=== PATIENT | female | born 1925 | race African-American/Black ===

== ENCOUNTER 2017-03-07 09:46 | Emergency (ER) | payer MEDICARE ==
[2017-03-07 11:03] LABS: #Eosinphils 0.1 thou/uL (0.0-0.7); #Lymphocytes 1.4 thou/uL (1.20-3.40); #Monocytes 0.5 thou/uL (0.11-0.59); #Neutrophils 3.4 thou/uL (1.40-6.50); %Basophils 0.3 % (0.0-1.0); %Lymphocytes 26.1 % (21.0-51.0); %Monocytes 9.8 % (0.0-10.0); Anisocytosis SLIGHT = 6-15 cells (100X) (0-5/hpf); Hematocrit 37.7 % (36.0-47.0); Macrocytosis SLIGHT = 6-15 cells (100X) (0-5/hpf); Mean Platelet Volume 11.5 fL (7.4-10.4); Red Blood Cell (RBC) Count 3.49 mill/uL (4.20-5.40); White Blood Cell (WBC) Count 5.4 thou/uL (4.8-10.8)
[2017-03-07 11:06] LABS: ALT (SGPT) 10 U/L (8-55); AST (SGOT) 16 U/L (5-34); Alkaline Phosphatase 116 U/L (40-150); Anion Gap 19 mmol/L (10-20); BUN (Urea Nitrogen) 31 mg/dL (9.8-20.1); Bilirubin, Total 0.6 mg/dL (0.2-1.2); Calc. Creatinine Clearance 0 mL/min (70-130); Calcium 8.8 mg/dL (7.8-10.44); Carbon Dioxide 22 mmol/L (23-31); Chloride 99 mmol/L (98-107); Estimated GFR-MDRD 9; Globulin 3.5 g/dL (2.4-3.5); Protein, Total 7.1 g/dL (6.0-8.3)
[2017-03-07] MEDS ORDERED: Acetaminophen 325 MG TAB ONE (12:14)
--- NOTE | 2017-03-07 12:21 | CT ---
CT OF THE BRAIN WITHOUT CONTRAST: COMPARISON: 12/04/14. HISTORY: Fall last night with head trauma. Bone pain. The patient has diabetes and gout. TECHNIQUE: Multiple contiguous axial images were obtained in a CT of the brain without contrast. FINDINGS: There are scattered hypodensities in the subcortical and periventricular white matter, likely second basil to small-vessel ischemic disease. No large confluent infarction is seen. There is no evidence of hydrocephalus, intracranial hemorrhage, or extraaxial fluid collection. The calvarium and overlying soft tissues are unremarkable. The visualized paranasal sinuses and mas toid air cells are well aerated. IMPRESSION: No evidence of acute intracranial abnormality. POS: [facility]
--- NOTE | 2017-03-07 12:29 | RAD ---
SINGLE VIEW OF THE CHEST: COMPARISON: 11/16/16. HISTORY: CHF, hypercholesterolemia, and diabetes. Fall last night with trauma to the chest and head. FINDINGS: Single view of the chest shows a normal sized cardiomediastinal silhouette. There is no evidence of consolidation, mass, or pleural effusion. Degenerative changes are seen in the spine. IMPRESSION: No evidence of acute cardiopulmonary disease. POS: [facility]
--- NOTE | 2017-03-07 12:30 | RAD ---
SINGLE VIEW OF THE PELVIS: COMPARISON: 10/28/14. HISTORY: Hypercholesterolemia. Fall last night with left posterior rib pain and pelvic pain. FINDINGS: A single view of the pelvis shows no evidence of acute fracture or dislocation. Mild degenerative c hange is seen in both hips. IMPRESSION: Mild degenerative changes in the hips without acute osseous abnormality. POS: [facility]
--- NOTE | 2017-03-07 12:30 | RAD ---
LEFT RIB SERIES: COMPARISON: None. HISTORY: Left rib pain. FINDINGS: Three views left ribs show no evidence of displaced rib fracture. No underlying pleural thickening or pneumothorax are seen. A stent is seen in the left axillary region. IMPRESSION: No significant left rib abnormality. POS: [facility]
== END 2017-03-07 12:29 | disposition home or self-care (01) ==
LOC: ERS 09:46
DX: R51 Headache (principal); R07.81 Pleurodynia; R10.2 Pelvic and perineal pain; N18.6 End stage renal disease; I50.9 Heart failure, unspecified; E78.5 Hyperlipidemia, unspecified; E11.9 Type 2 diabetes mellitus without complications; W18.30XA Fall on same level, unspecified, initial encounter
CPT/HCPCS: 36415; 70450; 71010; 72170; 80053; 85025; 93005

== ENCOUNTER 2017-05-17 11:46 | Observation (INO) | payer MEDICARE ==
--- NOTE | 2017-05-17 12:14 | RAD ---
SINGLE VIEW OF THE CHEST: COMPARISON: 11/16/16. HISTORY: Chest pain that began last night. FINDINGS: Single view of the chest shows a normal sized cardiomediastinal silhouette. There is no evidence of c onsolidation, mass, or pleural effusion. The bones are unremarkable. There is a stent in the left up per extremity. IMPRESSION: No evidence of acute cardiopulmonary disease. POS: [facility]
[2017-05-17] MEDS ORDERED: Mag-Al 1200 mg/1200 mg/30 ML UDCUP ONE (12:52)
[2017-05-17] MEDS ORDERED: Lidocaine Viscous Sol 2% 15 ml UD Cup ONE (12:52)
[2017-05-17 12:56] LABS: INR-International Normal Ratio 1.1; PTT 33.6 SEC (22.9-36.1); Prothrombin Time 14.8 SEC (12.0-14.7)
[2017-05-17 13:11] LABS: ALT (SGPT) 14 U/L (8-55); AST (SGOT) 16 U/L (5-34); Albumin 3.3 g/dL (3.4-4.8); Alkaline Phosphatase 121 U/L (40-150); Anion Gap 16 mmol/L (10-20); BUN (Urea Nitrogen) 41 mg/dL (9.8-20.1); Bilirubin, Total 0.4 mg/dL (0.2-1.2); CK (CPK) 33 U/L (29-168); Calc. Creatinine Clearance 0 mL/min (70-130); Calcium 8.6 mg/dL (7.8-10.44); Carbon Dioxide 23 mmol/L (23-31); Chloride 101 mmol/L (98-107); Estimated GFR-MDRD 7; Glucose 183 mg/dL (83-110); Lipase 124 U/L (8-78); Potassium 5.2 mmol/L (3.5-5.1); Protein, Total 6.3 g/dL (6.0-8.3); Sodium 135 mmol/L (136-145)
[2017-05-17 13:14] LABS: CKMB 0.3 ng/mL (0-6.6)
[2017-05-17 13:15] LABS: Hemoglobin 10.5 g/dL (12.0-16.0); Mean Corpuscular HGB CONC 31.2 g/dL (32.0-36.0); Mean Platelet Volume 9.8 fL (7.4-10.4); Platelet Count 143 thou/uL (130-400); RBC Distribution Width 13.5 % (11.5-14.5); Red Blood Cell (RBC) Count 3.19 mill/uL (4.20-5.40); White Blood Cell (WBC) Count 7.4 thou/uL (4.8-10.8)
[2017-05-17 13:17] LABS: #Eosinphils 0.1 thou/uL (0.0-0.7); #Monocytes 0.7 thou/uL (0.11-0.59); #Neutrophils 3.6 thou/uL (1.40-6.50); %Basophils 0.5 % (0.0-1.0); %Eosinophils 1.1 % (0.0-10.0); %Lymphocytes 39.9 % (21.0-51.0); %Monocytes 9.9 % (0.0-10.0); %Neutrophils 48.6 % (42.0-75.0); Anisocytosis SLIGHT = 6-15 cells (100X) (0-5/hpf); Hypochromia SLIGHT = 6-15 cells (100X) (0-5/hpf); MDiff Complete? YES; PLT Morphology Comment Appears Adequate
[2017-05-17] MEDS ORDERED: Nitroglycerin 0.4 MG TAB (25 Tab Bottle) ONE (13:39)
[2017-05-17] MEDS ORDERED: Nitroglycerin 0.4 MG TAB (25 Tab Bottle) PO PRN (14:41)
[2017-05-17] MEDS ORDERED: Acetaminophen 325 MG TAB PO PRN (14:41)
[2017-05-17] MEDS ORDERED: Acetaminophen 650 MG Suppository PR PRN (14:41)
[2017-05-17] MEDS ORDERED: Lidocaine 2% Viscous Solution 10 ML, Aluminum & Magnesium Hydroxide 30 ML SSW PRN (15:03)
[2017-05-17] MEDS ORDERED: Lidocaine 2% Viscous Solution 10 ML, Aluminum & Magnesium Hydroxide 30 ML SSW SCH (15:15)
--- NOTE | 2017-05-17 15:45 | RAD ---
TWO VIEWS ABDOMEN: Comparison: 06-18-12 History: Abdominal pain. FINDINGS: Supine and decubitus views of the abdomen shows a nonspecific, nonobstructed bowel gas pattern. Air i s seen at the level of the rectum. No free air is seen on decubitus view. No air fluid levels are see n. No suspicious calcifications are present. Mild to moderate degenerative changes are seen in the saurav mbar spine. IMPRESSION: Nonobstructed bowel gas pattern. POS: [facility]
--- NOTE | 2017-05-17 15:45 | HP ---
PRIMARY CARE PHYSICIAN: Dr. Christin Haq. CHIEF COMPLAINT: Chest pain. HISTORY OF PRESENT ILLNESS: Ms. Mohan is a pleasant 89-year-old lady who was seen at [facility] on 05/17/2017. She reports that she has had chest pain since last night. She describes it as on and off, 10/10 at i ts worst, over the lower retrosternal area as well as epigastric area, nonradiating, sharp, accompani ed by nausea and diaphoresis, but not by shortness of breath or lightheadedness. She reports a chron ic cough that is nonproductive. REVIEW OF SYSTEMS: The following complete review of systems was negative, unless otherwise mentioned in the HPI or below: Constitutional: Weight loss or gain, ability to conduct usual activities. Skin: Rash, itching. Eyes: Double vision, pain. ENT/Mouth: Nose bleeding, neck stiffness, pain, tenderness. Cardiovascular: Palpitations, dyspnea on exertion, orthopnea. Respiratory: Shortness of breath, wheezing, cough, hemoptysis, fever or night sweats. Gastrointestinal: Poor appetite, abdominal pain, heartburn, nausea, vomiting, constipation, or diarr hea. Genitourinary: Urgency, frequency, dysuria, nocturia. Musculoskeletal: Pain, swelling. Neurologic/Psychiatric: Anxiety, depression. Allergy/Immunologic: Skin rash, bleeding tendency. PAST MEDICAL HISTORY: Significant for end-stage renal disease, on hemodialysis Thursday, Thursday, , anemia of kidney disease, cardiac arrhythmia, nonsustained ventricular tachycardia in the past, diabetes mellitus type 2, hypertension, dyslipidemia, colon polyp, senile dementia, and osteoarthrit is. PAST SURGICAL HISTORY: Significant for bladder suspension, hysterectomy, cholecystectomy, right shou lder surgery and cardiac catheterization in 07/2016 showing minimal coronary artery disease. PSYCHIATRIC HISTORY: Significant for anxiety and depression. SOCIAL HISTORY: The patient denies tobacco use, alcohol use or recreational drug use. FAMILY HISTORY: Significant for diabetes mellitus, hypertension, and heart disease. ALLERGIES: CODEINE, MORPHINE. CURRENT MEDICATIONS: These need to be clarified. In the past, patient was on aspirin, atorvastatin, Coreg, donepezil, multivitamins, hydralazine, Imdur, Procardia, Protonix, Ultram and Ventolin. PHYSICAL EXAMINATION: GENERAL: Ms. Mohan is awake and alert, not in acute distress. VITAL SIGNS: Blood pressure is 119/49, pulse is 61, she is breathing at rate of 16, and saturating 9 5% on room air. She is afebrile. EYES: No scleral icterus. No conjunctival pallor. ENT: Moist mucosal membranes, no oropharyngeal erythema or exudates. NECK: Supple, nontender, normal range of movement, trachea is midline. RESPIRATORY: Accessory muscles of breathing are not active. Chest wall movements are symmetric bila terally. LUNGS: Clear to auscultation without wheeze, rhonchi or crepitations. CARDIOVASCULAR: S1 and S2 are heard, regular. Peripheral pulses palpable. No carotid bruit, no per icardial rub. ABDOMEN: Soft, mild epigastric tenderness, no guarding or rigidity, bowel sounds heard, no hepatomeg jason, no splenomegaly. NEUROLOGIC: Cranial nerves II through XII are intact. Deep tendon reflexes are 2+. MUSCULOSKELETAL: Power is 5/5 in all four extremities. She has reproducible tenderness over the low er sternum. LYMPHATIC: No cervical lymphadenopathy. SKIN: No rashes or subcutaneous nodules. PSYCHIATRIC: Normal mood, normal affect, patient is oriented to person, place, and time. LABORATORY DATA AND IMAGING: Ms. Mohan's labs and investigations were reviewed. I reviewed her el ectrocardiogram, which shows normal sinus rhythm, no ST changes to suggest an acute coronary syndrome . I also reviewed her chest x-ray, which does not show any pulmonary infiltrates. Laboratory invest igations show normal white count, macrocytic anemia with hemoglobin of 10.5, normal platelet count, I NR 1.1, elevated D-dimer of 2.42, decreased sodium of 135, elevated potassium of 5.2, elevated blood urea nitrogen 41, elevated creatinine 7.04 and decreased albumin of 3.3. Troponin I is normal. ASSESSMENT AND PLAN: Ms. Mohan is a pleasant 89-year-old lady who was seen at [facility] on 05/17/2017. Her problem list includes: 1. Chest pain: She presents with atypical chest pain for heart disease. She also had minimal coron basil artery disease on cardiac catheterization in 07/2016. We will obtain 3 sets of troponins and if normal, no further cardiac workup will be needed. She will be advised to follow up with her cardiolo gist. In view of elevated D-dimer, emergency room physician has ordered a VQ scan. If there is any evidence of venous thromboembolism, we will start the patient on anticoagulation. We will also start the patient on GI cocktail to cover for gastrointestinal causes of retrosternal chest discomfort. 2. Electrolyte abnormalities: She has hyperkalemia and hypokalemia, both mild. Nephrology service will be consulted, so that the patient can undergo hemodialysis on her scheduled date. 3. End-stage renal disease on dialysis. Maintenance dialysis per Nephrology Service. 4. Diabetes mellitus type 2, start Accu-Cheks, insulin sliding scale. 5. Hypertension: Monitor vital signs, titrate antihypertensives as needed. 6. Dyslipidemia: Continue home medications. I discussed her code status. She is FULL CODE. Many thanks for allowing me to participate in your patient's care. Please feel free to contact me wi th any questions or concerns. LEVEL OF RISK: High. LEVEL OF COMPLEXITY: High.
[2017-05-17] MEDS: Heparin 5,000 UNITS/ML VIAL SC SCH ×2 (18:35→21:12)
[2017-05-17 19:45] LABS: Troponin I 0.018 ng/mL (< 0.028)
[2017-05-17 20:01] VITALS: BMI 30.6
--- NOTE | 2017-05-17 20:06 | NM ---
VENTILATION PERFUSION LUNG SCAN: History: Elevated D-Dimer. Chest pain. Correlation made with chest film performed at 12:05 p.m. today. FINDINGS: Ventilation scan performed after inhalation of Xenon gas. Anterior and posterior images show no significant ventilation defect. Mild symmetric air trapping. Perfusion scan performed with administration of 6.4 mCi Technetium labelled MAA IV. Lungs were imaged in eight projections. There is normal perfusion. No evidence of perfusion defect. IMPRESSION: Low probability of pulmonary embolus. POS: [facility]
--- NOTE | 2017-05-17 23:21 | CON ---
DATE OF CONSULTATION: 05/17/2017 REASON FOR CONSULTATION: Stage 6 chronic kidney disease, on maintenance hemodialysis. HISTORY OF PRESENT ILLNESS: This is a very pleasant 89-year-old female who presented to the [facility] with chest pain. The patient dialyzes Thursday, Thursday and Thursday. The patient states the patient's pain was severe and nonradiating and was accompanied with nausea and diaphoresis. The patient denies orthopnea, no PND. PAST MEDICAL HISTORY: Significant for hypertension, cardiac catheterization, end-stage renal disease, AV fistula, cholecystectomy, coronary artery disease, tunneled dialysis catheter, diabetes mellitus, hypertension, hyperlipidemia, senile dementia, osteoarthritis, nonsustained ventricular tachycardia. SOCIAL HISTORY: Denies any alcohol or drug use. FAMILY HISTORY: Negative for ESRD. ALLERGIES: Reviewed. HOME MEDICATIONS: List reviewed. REVIEW OF SYSTEMS: Fifteen point review of systems was performed and negative except positives as noted above. General: Weakness. Head: Headache. Neck: No swelling or lumps. NOSE: No epistaxis or discharge. Eyes: No diplopia or pain. Respiratory: Dyspnea. Cardiovascular: Chest pain. Gastrointestinal: Nausea. 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 Musculoskeletal: No joint pain. Neuropsychiatic systems: No suicidal ideation. No ideation. SKIN: Denies any rash or ulcer. Constitutional: No fever or chills. PHYSICAL EXAMINATION: GENERAL: Patient is awake, alert. VITAL SIGNS: Afebrile, pulse 70, breathing 16, blood pressure 116/49. HEAD/NECK: Normocephalic. Atraumatic. EYES: EOMI. No deformity. EARS: Clear. No ulcers. NOSE: Intact. No lesions. MOUTH: Clear. No discharge. THROAT: Clear. No exudate. LUNGS: Clear. No crackles. CARDIAC: S1, S2. No rub. ABDOMEN: Benign. BS+. GENITALIA/RECTUM: Singh absent. BACK/EXTREMITIES: Edema 0+ Ulcer- NEUROLOGICAL: Alert and motor intact. SKIN: Rash- Bruise- LYMPHATICS: Edema- Ulcer- LABORATORY DATA: Potassium 5.2. ASSESSMENT AND RECOMMENDATIONS: 1. Stage 6 chronic kidney disease. We will plan hemodialysis. 2. Hyperkalemia. Plan dialysis. 4. Anemia, stable. 5. Hypertension, stable. 6. Chest pain. Management per primary team. [facility]
[2017-05-18 05:24] LABS: #Eosinphils 0.2 thou/uL (0.0-0.7); #Lymphocytes 2.8 thou/uL (1.20-3.40); #Monocytes 0.7 thou/uL (0.11-0.59); %Basophils 0.6 % (0.0-1.0); %Eosinophils 2.4 % (0.0-10.0); %Lymphocytes 41.9 % (21.0-51.0); %Monocytes 10.5 % (0.0-10.0); %Neutrophils 44.7 % (42.0-75.0); Hemoglobin 10.5 g/dL (12.0-16.0); Mean Corpuscular HGB CONC 32.3 g/dL (32.0-36.0); Mean Corpuscular Hemoglobin 34.2 pg (27.0-31.0); Mean Platelet Volume 8.3 fL (7.4-10.4); Platelet Count 177 thou/uL (130-400); RBC Distribution Width 13.9 % (11.5-14.5); Red Blood Cell (RBC) Count 3.07 mill/uL (4.20-5.40); White Blood Cell (WBC) Count 6.7 thou/uL (4.8-10.8)
[2017-05-18 05:27] LABS: Anion Gap 17 mmol/L (10-20); BUN (Urea Nitrogen) 49 mg/dL (9.8-20.1); Calc. Creatinine Clearance 6 mL/min (70-130); Calcium 8.6 mg/dL (7.8-10.44); Carbon Dioxide 25 mmol/L (23-31); Chloride 101 mmol/L (98-107); Estimated GFR-MDRD 6; Glucose 88 mg/dL (83-110); Potassium 5.7 mmol/L (3.5-5.1); Sodium 137 mmol/L (136-145)
[2017-05-18 08:51] LABS: Troponin I 0.014 ng/mL (< 0.028)
[2017-05-18] MEDS: Heparin 5,000 UNITS/ML VIAL SC SCH ×2 (08:51→16:24)
[2017-05-18 12:25] VITALS: BP 145/63; TEMP 97.9
--- NOTE | 2017-05-18 18:54 | PRG ---
DATE OF SERVICE: 05/18/2017 SUBJECTIVE: Patient was seen and examined at bedside and overnight events noted. Patient denies any shortness of breath or chest pain or palpitation. No history of nausea or vomiting or diarrhea or f ever or chills or cramps. OBJECTIVE: GENERAL: This is an elderly female in no apparent distress. VITAL SIGNS: Temperature 97.9, pulse 60, respiratory rate 20 and blood pressure 143/63. HEENT: Atraumatic and normocephalic. Oral mucosa is moist. NECK: Supple. CARDIOVASCULAR: S1 and S2 heard. Rate and rhythm regular. RESPIRATORY: Clear to auscultation. GASTROINTESTINAL: Abdomen is soft. MUSCULOSKELETAL: No tenderness. No edema. DERMATOLOGIC: No skin rash. NEUROLOGIC: Alert, awake and oriented x3. No focal neurologic deficits. Moving all the extremities . PSYCHIATRIC: Mood and affect normal. LABORATORY DATA: Potassium is 5.7, BUN is 49 and creatinine is 8.0. ASSESSMENT AND PLAN: 1. End-stage renal disease. Continue on hemodialysis today and Thursday, Thursday and Thursday. 2. Hyperkalemia, limit potassium. 3. Edema alcoholism 4. Hypertension. 5. Anemia, stable. Plan is to have dialysis today and Thursday, Thursday, and Thursday as tolerated.
--- NOTE | 2017-05-18 20:11 | DIS ---
DATE OF ADMISSION: 05/17/2017 DATE OF DISCHARGE: 05/18/2017 PRIMARY CARE PHYSICIAN: Christin Haq M.D. DISCHARGE DIAGNOSES: Chest pain. DISCHARGE: Epigastric pain. CONDITION OF THE PATIENT ON THE DAY OF DISCHARGE: Stable. I assessed Ms. Mohan on the day of discharge. She denies chest pain, shortness of breath. Vital signs are stable. S1 and S2 are heard, regular. Lungs are clear to auscultation. HOSPITAL COURSE: Ms. Mohan is a pleasant 89-year-old lady who was admitted to [facility] on 05/18/2017, for a lower retrosternal chest discomfort as well as epigastric discomfort. Acute coronary syndrome was ruled out with serial cardiac enzymes. She was also monitored on telemetry. She had an elevated D-dimer. VQ scan was low probability for pulmonary embolism. Her chest discomfort resolved. Epigastric discomfort improved with GI cocktail. She is advised to take over the counter Maalox on a p.r.n. basis. She had a mildly elevated lipase of 124 at the time of admission. On the day of discharge, she has sodium of 137, potassium 5.7, creatinine 8.06, white count 6700, hemoglobin 10.5, and platelet count 177,000. She was seen by Nephrology Service and is undergoing maintenance hemodialysis prior to discharge. She is advised to follow up with her primary care physician in 3-5 days. DISCHARGE MEDICATIONS: Include Maalox p.r.n., aspirin 81 mg daily, atorvastatin 20 mg at bedtime, Coreg 25 mg 2 times a day, Valium 10 mg 2 times a day, Donepezil 5 mg at bedtime, folic acid/vitamin B complex 1 tablet daily, hydralazine 100 mg 3 times a day, isosorbide mononitrate 60 mg daily, Procardia- XL 90 mg daily, Protonix 40 mg 2 times a day, Phenergan/codeine syrup as needed , tramadol as needed. Many thanks for allowing me to participate in your patient's care. Please feel free to contact me with any questions or concerns. DISCHARGE DESTINATION: Home. [facility]
--- NOTE | 2017-06-06 16:10 | EKG ---
Test Reason : Blood Pressure : / mmHG Vent. Rate : 069 BPM Atrial Rate : 069 BPM P-R Int : 156 ms QRS Dur : 122 ms QT Int : 414 ms P-R-T Axes : 057 -47 018 degrees QTc Int : 443 ms Normal sinus rhythm Left axis deviation Right bundle branch block Abnormal ECG Confirmed by NIXON GUTIERREZ M.D. ([id number]), art editor ERIBERTO ALFORD ([id number]) on 06/06/2017 4:09:35 PM Referred By: Confirmed By:NIXON GUTIERREZ M.D.
== END 2017-05-18 18:18 | disposition home or self-care (01) ==
LOC: ERS 11:46 → ERHOLD 14:37 → 2SW 18:03
PROVIDERS: ADMIT Internal Medicine; ATTEND Internal Medicine
DX: R07.89 Other chest pain (principal); R10.13 Epigastric pain; E11.22 Type 2 diabetes mellitus with diabetic chronic kidney disease; I12.0 Hypertensive chronic kidney disease with stage 5 chronic kidney disease or end stage renal disease; N18.6 End stage renal disease; D63.1 Anemia in chronic kidney disease; R60.9 Edema, unspecified; I25.10 Atherosclerotic heart disease of native coronary artery without angina pectoris; E78.5 Hyperlipidemia, unspecified; M19.90 Unspecified osteoarthritis, unspecified site; F03.90 Unspecified dementia, unspecified severity, without behavioral disturbance, psychotic disturbance, mood disturbance, and anxiety; E87.5 Hyperkalemia; F41.9 Anxiety disorder, unspecified; F32.9 Major depressive disorder, single episode, unspecified; Z99.2 Dependence on renal dialysis; Z86.010 Personal history of colon polyps; Z85.038 Personal history of other malignant neoplasm of large intestine; Z79.82 Long term (current) use of aspirin; Z79.899 Other long term (current) drug therapy; Z88.5 Allergy status to narcotic agent; Z90.49 Acquired absence of other specified parts of digestive tract; Z98.890 Other specified postprocedural states
CPT/HCPCS: 71045; 74019; 78582; 80048; 80053; 82550; 82553; 83690; 84484 ×3; 85025 ×2; 85379; 85610; 85730; 93005; 94760 ×3; 99285; A9540; A9558; G0378; 36415; 90935; G0257; J1644

== ENCOUNTER 2017-07-19 23:11 | Observation (INO) | payer MEDICARE ==
[2017-07-20] MEDS ORDERED: Famotidine/PF 20 mg/2ml Vial ONE (00:54)
[2017-07-20 01:19] LABS: Bilirubin Negative (Negative); Blood, Urine Negative (Negative); Clarity CLOUDY (Clear); Glucose, Urine (Dipstick) Negative (Negative); Leukocyte Moderate (Negative); Nitrite Negative (Negative); Protein, Urine (Dipstick) 30 mg/dL (Neg-Trace); Specific Gravity, Urine 1.016 (1.002-1.036); Urobilinogen 0.2 mg/dL (0.2-1.0)
[2017-07-20 01:22] LABS: Bacteria/HPF Rare-Few HPF (None Seen); Hyaline Casts/LPF 0-3 HYALINE CAST LPF (0-3 Hyaline); Pathc Cast-AUWi Flag 0.14 (0-2.49); Squamous Epithelial None Seen HPF (0-3); WBC/HPF 21-50 HPF (0-3)
[2017-07-20 01:30] LABS: Yeast-AUWi Flag 37.9 (0-25.0)
[2017-07-20 01:39] LABS: Yeast-All Forms 1+ HPF (None Seen)
[2017-07-20] MEDS ORDERED: hydrALAZINE 20 MG/ML VIAL ONE (03:08)
[2017-07-20] MEDS ORDERED: Aspirin 325 MG TAB ONE (03:27)
[2017-07-20] MEDS ORDERED: Phenergan/Codeine 10-6.25mg/5ml UDCUP PO PRN (04:37)
[2017-07-20 05:00] LABS: #Basophils 0.1 thou/uL (0.0-0.2); #Eosinphils 0.1 thou/uL (0.0-0.7); #Lymphocytes 2.2 thou/uL (1.20-3.40); #Monocytes 0.7 thou/uL (0.11-0.59); #Neutrophils 4.6 thou/uL (1.40-6.50); %Eosinophils 1.6 % (0.0-10.0); %Monocytes 8.8 % (0.0-10.0); %Neutrophils 60.5 % (42.0-75.0); Hemoglobin 9.9 g/dL (12.0-16.0); Mean Corpuscular Hemoglobin 33.6 pg (27.0-31.0); Mean Platelet Volume 8.9 fL (7.4-10.4); Platelet Count 172 thou/uL (130-400); RBC Distribution Width 13.8 % (11.5-14.5); Red Blood Cell (RBC) Count 2.94 mill/uL (4.20-5.40); White Blood Cell (WBC) Count 7.7 thou/uL (4.8-10.8)
[2017-07-20] MEDS ORDERED: Acetaminophen 325 MG TAB PO PRN (05:14)
[2017-07-20] MEDS ORDERED: Ondansetron ODT 4 MG TAB PO PRN (05:14)
[2017-07-20 05:18] VITALS: BMI 30.9
[2017-07-20 05:18] LABS: ALT (SGPT) 12 U/L (8-55); AST (SGOT) 13 U/L (5-34); Albumin 3.4 g/dL (3.4-4.8); Alkaline Phosphatase 119 U/L (40-150); Anion Gap 14 mmol/L (10-20); BUN (Urea Nitrogen) 51 mg/dL (9.8-20.1); Bilirubin, Total 0.3 mg/dL (0.2-1.2); Calc. Creatinine Clearance 6 mL/min (70-130); Calcium 8.6 mg/dL (7.8-10.44); Carbon Dioxide 26 mmol/L (23-31); Chloride 101 mmol/L (98-107); Estimated GFR-MDRD 5; Glucose 109 mg/dL (83-110); Potassium 5.3 mmol/L (3.5-5.1); Protein, Total 6.4 g/dL (6.0-8.3); Sodium 136 mmol/L (136-145)
--- NOTE | 2017-07-20 08:16 | HP ---
DATE OF ADMISSION: 07/19/2017 CHIEF COMPLAINT: Confusion. HISTORY OF PRESENT ILLNESS: This is an 89-year-old -[place] female with a known past medical history of type 2 diabetes mellitus and end-stage renal disease. The patient went to [place] [facility] fo r confusion and slurred speech. Initially, she was diagnosed with sepsis and pneumonia and she was t ransferred to [facility]. The patient had a CT of the head at [place], which was unremarkable ac cording to the ER physician. When she arrived here, her slurred speech was resolved completely, but patient was noted to have urinary tract infection. Patient was unable to give any history at this [facility]. According to the ER physician and [place] physician's notes, patient denied having any chest pa in, no nausea, no vomiting, no diarrhea, no constipation. No history of any recent sickness. PAST MEDICAL HISTORY: 1. End-stage renal disease. 2. Type 2 diabetes mellitus. 3. Hypertension. PAST SURGICAL HISTORY: 1. History of bladder suspension. 2. History of hysterectomy. 3. Cholecystectomy. 4. Left shoulder repair. 5. Cardiac catheterization. SOCIAL HISTORY: Patient is not a known smoker. No history of alcohol. No history of illicit drug u se. FAMILY HISTORY: Significant for type 2 diabetes mellitus and hypertension and heart disease. HOME MEDICATIONS: 1. Aspirin 81 mg daily. 2. Atorvastatin. 3. Coreg 25 mg p.o. daily. 4. Diazepam. 5. Donepezil. 6. Folic acid. 7. Hydralazine. 8. Isosoride. 9. Nifedipine. 10. Tramadol. REVIEW OF SYSTEMS: Unable to get any review of systems because of the altered mental status. ALLERGIES: CODEINE, MORPHINE, OPIOIDS, and MORPHINE ANALOGUES. PHYSICAL EXAMINATION: VITAL SIGNS: Blood pressures are 122/110, heart rate is 88, respiration rate is 18, saturation 98%. GENERAL: The patient is moderately built, moderately nourished, does not appear to be in acute distr ess. She is alert but completely disoriented. HEENT: Atraumatic, normocephalic. PERRLA. Extraocular movements were intact. Oral mucosa is pink and moist. CARDIOVASCULAR: S1, S2 normal. No murmurs, rubs, or gallops. LUNGS: Bilateral air entry was equal. No wheezing, no crackles. ABDOMEN: Soft, nontender. No guarding, no rebound tenderness. Bowel sounds normal. MUSCULOSKELETAL: No calf tenderness. No pedal edema, no tenderness, no joint swelling. SKIN: No cyanosis, no erythema, no rash, no pallor. PSYCHIATRIC: No signs of suicidal ideation, no signs of akil[place] was noted. NECK: No JVD, no thyromegaly. LABORATORY DATA: UA was positive for urinary tract infection. CBC and CMP are not available at this time as the labs were done at [facility], so we will be ordering a CBC and CMP today. ASSESSMENT: 1. Acute encephalopathy. 2. Acute urinary tract infection. 3. End-stage renal disease. 4. Type 2 diabetes mellitus. 5. Hypertension. PLAN: Plan is to evaluate for TIA. We will do MRI of the brain and will do neuro checks every 4 rosalia rs. We will continue the patient on aspirin, beta blockers, and atorvastatin. 1. We will do a speech evaluation. 2. Patient has evidence of UTI. We will start the patient on Rocephin 1 gram IV daily. Wait for e urine cultures. 3. We will do a CBC and a CMP and look for any evidence of any worsening infection or any worsening sepsis. 4. Patient has end-stage renal disease. Her dialysis day is today, Thursday. We will consult Nephrol ogkorey for hemodialysis. 5. DVT prophylaxis. Heparin 5000 subcu b.i.d. I spent 65 minutes with this patient.
[2017-07-20] MEDS ORDERED: hydrALAZINE 25 MG TAB PO SCH (09:00)
[2017-07-20] MEDS ORDERED: Famotidine/PF 20 mg/2ml Vial SLOW IVP SCH (09:00)
[2017-07-20] MEDS ORDERED: Carvedilol 25 MG TAB PO SCH (09:00)
[2017-07-20] MEDS ORDERED: Aspirin 81 mg Enteric Coated Tablet PO SCH (09:00)
[2017-07-20] MEDS ORDERED: Heparin 5,000 UNITS/ML VIAL SC SCH (09:00)
[2017-07-20] MEDS ORDERED: Docusate 100 MG CAP PO SCH (09:00)
[2017-07-20] MEDS ORDERED: NIFEdipine XL 90 MG TAB PO SCH (09:00)
[2017-07-20] MEDS ORDERED: Folic Acid/Vit B Comp W-C PO SCH (09:00)
[2017-07-20 10:25] VITALS: BP 131/60
[2017-07-20 11:30] VITALS: TEMP 97.7
--- NOTE | 2017-07-20 11:49 | CON ---
DATE OF CONSULTATION: 07/20/2017 NEPHROLOGY CONSULTATION REASON FOR CONSULTATION: Stage 6 chronic kidney disease and hyperkalemia. HISTORY OF PRESENT ILLNESS: An 89-year-old female who presented to the hospital with TIA-like sympto ms. Around 4:00 this morning and is scheduled for dialysis today. The patient had confusion as well . The patient at this time denies any nausea, vomiting, headache, numbness, tingling or weakness. PAST MEDICAL HISTORY: Significant for end-stage renal disease, hypertension, diabetes mellitus, hist ory of bladder suspension, hysterectomy, cholecystectomy, left shoulder repair, cardiac catheterizati on. SOCIOECONOMIC HISTORY: No alcohol or drugs. FAMILY HISTORY: Negative for ESRD. HOME MEDICATIONS: List reviewed. REVIEW OF SYSTEMS: Unobtainable due to altered mental status. ALLERGIES: Reviewed. PHYSICAL EXAMINATION: GENERAL: Patient is awake. VITAL SIGNS: Afebrile, pulse 75, breathing 16, blood pressure was 120/80. HEAD/NECK: Normocephalic. Atraumatic. EYES: EOMI. No deformity. EARS: Clear. No ulcers. NOSE: Intact. No lesions. MOUTH: Clear. No discharge. THROAT: Clear. No exudate. LUNGS: Clear. No crackles. CARDIAC: S1, S2. No rub. ABDOMEN: Benign. BS+. GENITALIA/RECTUM: Singh absent. BACK/EXTREMITIES: Edema 0+ Ulcer- NEUROLOGICAL: The patient is confused. SKIN: Rash- Bruise- LYMPHATICS: Edema- Ulcer- LABORATORY DATA: Show potassium is 5.3. ASSESSMENT AND RECOMMENDATIONS: 1. Stage 6 chronic kidney disease. We will plan dialysis. 2. Hyperkalemia, plan dialysis. 3. Anemia, stable. 4. Medications based on glomerular filtration rate are appropriate. No family member was available to address the patient's situation.
--- NOTE | 2017-07-20 12:26 | ULT ---
BILATERAL CAROTID DUPLEX ULTRASOUND: DATE: HISTORY: TIA. TECHNIQUE: Chambers scale ultrasound with color flow and spectral Doppler imaging of the extracranial carotid artery systems performed. FINDINGS: There is plaque formation on either side. The peak systolic velocity in the right ICA measures 117 cm/second with an end-diastolic velocity of 19 cm/second and a systolic ratio of 1.20. The peak systolic velocity in the left ICA measures 117 cm/second with an end-diastolic velocity of 1 9 cm/second and a systolic ratio of 1.20. Flow in both vertebral arteries remains antegrade. IMPRESSION: No evidence of hemodynamically significant stenosis. POS: [facility]
--- NOTE | 2017-07-20 12:35 | MRI ---
BRAIN MRI WITHOUT CONTRAST: 07/20/2017 COMPARISON: None. HISTORY: Transient ischemic attack. TECHNIQUE: Multiplanar, multisequence MR imaging of the brain is provided without contrast. FINDINGS: The diffusion weighted imaging demonstrates no evidence for acute infarction. Axial gradient echo imaging demonstrates no evidence for intracranial hemorrhage. There is moderate diffuse cerebral volume loss with associated prominence of the CSF-containing spaces. Arterial flow voids appear patent at the axial level of the skull base on the T2 imaging. There is multifocal periventricular deep and subcortical white matter T2 and FLAIR hyperintensity, ev idence of small vessel disease. Moderate cerebral volume loss noted. There is anterolisthesis of C3 on C4 measuring 4 mm. IMPRESSION: Cerebral volume loss and small vessel disease with no evidence for intracranial hemorrhage or acute i nfarction. POS: [facility]
--- NOTE | 2017-07-20 13:05 | DIS ---
DATE OF ADMISSION: 07/20/2017 DATE OF DISCHARGE: 07/20/2017 DISCHARGE DIAGNOSES: 1. Urinary tract infection, suspected organism pending. 2. Confusion, intermittent, resolved. 3. End-stage renal disease with hemodialysis. 4. Hypertension, labile. 5. Hyperkalemia, mild. 6. Chronic macrocytic anemia secondary to chronic kidney disease. CONSULTATIONS: Dr. Powell with Nephrology Service. PERTINENT LABORATORY DATA AND X-RAY FINDINGS: Potassium 5.3, creatinine 8.60, estimated GFR of 5. C BC showed hemoglobin of 9.9, hematocrit 30, MCV 102. CT of the brain without contrast dated 07/20/19 18 showed no acute intracranial process. MRI of the brain dated 07/20/2017 showed chronic ischemic w zully matter changes without evidence of acute process. Carotid Doppler study dated 07/20/2017 showed no hemodynamically significant stenosis. HOSPITAL COURSE: The patient was observed on the telemetry unit after initially presenting with ques tionable confusional state and concern for TIA. The patient underwent CT and MRI imaging of the brai n showing no acute process. The patient's confusion apparently resolved in the emergency room. Kirti ent with end-stage renal disease on current hemodialysis 3 times per week scheduled for maintenance h emodialysis on 07/20/2017. The patient was noted with urinalysis suspicious for possible cystitis pl aced on Rocephin in the emergency room. Final cultures are pending and the patient was transitioned to Omnicef 300 mg q.48 hours x5 doses. The patient remained clinically stable through the hospital [facility], tolerating regular oral intake with stable vital signs. I have examined and reviewed test res ults with the patient at the time of discharge who verbalizes understanding. Current plans are to fo llow up with outpatient hemodialysis on 07/20/2017 per recommendations from Nephrology Service. The patient overall clinically stable and ready for discharge on 07/20/2017. DISCHARGE MEDICATIONS: 1. Enteric coated aspirin 81 mg 1 tab p.o. daily. 2. Lipitor 20 mg p.o. at bedtime. 3. Coreg 25 mg p.o. b.i.d. 4. Omnicef 300 mg p.o. q.48 hours x5 doses. 5. Valium 10 mg p.o. b.i.d. 6. Donepezil 5 mg p.o. at bedtime. 7. Folic acid 1 tablet p.o. daily. 8. Hydralazine 100 mg p.o. t.i.d. 9. Isosorbide mononitrate 60 mg p.o. daily. 10. Nifedipine XL 90 mg p.o. daily. 11. Protonix 40 mg p.o. b.i.d. FOLLOWUP: Patient will follow up with her primary care provider Dr. Christin Haq within 7 days of discharge. The patient will follow up with Dr. Powell with Nephrology Service during maintenance hemod ialysis Thursday, Thursday, and Thursday. CONDITION ON DISCHARGE: Stable. ACTIVITY: Ad maddy. Rolling walker for ambulation. DIET: Renal. CODE STATUS: FULL. DISPOSITION: Home 07/20/2017.
[2017-07-20] MEDS ORDERED: Atorvastatin Calcium 40 MG TAB PO SCH (21:00)
[2017-07-20] MEDS ORDERED: Donepezil HCl 5 MG TAB PO SCH (21:00)
[2017-07-21] MEDS ORDERED: cefTRIAXone\\ROCEPHIN 1 GM in Syringe 10 ML IVPB SCH (03:00)
[2017-07-21] MEDS ORDERED: FLU VACC TS2017-18 (>65YR) 0.5 ML SYRINGE IM ONE (09:00)
== END 2017-07-20 13:09 | disposition home or self-care (01) ==
LOC: ERS 23:11 → CCU 07-20 03:15 → 2SW 07-20 08:32
PROVIDERS: ADMIT Family Medicine; ATTEND Family Medicine
DX: R41.0 Disorientation, unspecified (principal); N39.0 Urinary tract infection, site not specified; E87.5 Hyperkalemia; I12.0 Hypertensive chronic kidney disease with stage 5 chronic kidney disease or end stage renal disease; E11.22 Type 2 diabetes mellitus with diabetic chronic kidney disease; N18.6 End stage renal disease; D63.1 Anemia in chronic kidney disease; Z88.5 Allergy status to narcotic agent; Z79.82 Long term (current) use of aspirin; Z79.891 Long term (current) use of opiate analgesic; Z79.899 Other long term (current) drug therapy; Z99.2 Dependence on renal dialysis; Z82.49 Family history of ischemic heart disease and other diseases of the circulatory system; Z83.3 Family history of diabetes mellitus
CPT/HCPCS: 51701; 70551; 80053; 85025; 87086; 93306; 93880; 94760; 96374; 96375; 97139; 99285; G8978; G8979; 36415; 81003; 81015; A4216; G8996-GN-CJ; G8997-GN-CI; J0360; J0696; J1644; S0028

== ENCOUNTER 2017-07-26 07:03 | Emergency (ER) | payer MEDICARE ==
--- NOTE | 2017-07-26 08:41 | CT ---
CT BRAIN WITHOUT CONTRAST: HISTORY: Trauma, fall. COMPARISON: CT brain 03/07/17. FINDINGS: No acute intracranial hemorrhage or infarct. No midline shift or mass effect. Mild microvascular is chemic changes, similar. Calvarium is intact. Paranasal sinuses and mastoids are clear. Senile scleral calcifications bilate rally. IMPRESSION: No acute intracranial abnormality. No acute posttraumatic intracranial sequelae. POS: [facility]
--- NOTE | 2017-07-26 08:43 | CT ---
CT CERVICAL SPINE WITHOUT CONTRAST: History Trauma. Fall. COMPARISON: Cervical spine CT from 2015. FINDINGS: There are erosions of the odontoid process. Occipital condyles are intact. Also, erosions of the an terior arch of C1. Posterior facet fusion C2-C6 is present. Also, osseous fusion of C4, 5, and 6 ve rtebral bodies, likely all due to inflammatory arthropathy. Lung apices are clear. No acute displaced fracture or malalignment is appreciated. IMPRESSION: Extensive degenerative disease as well as multifocal osseous erosions suggesting inflammatory arthrop athy such as rheumatoid. There has been mild progression from the 2015 examination. POS: [facility]
[2017-07-26] MEDS ORDERED: Acetaminophen 325 MG TAB ONE (08:55)
--- NOTE | 2017-07-26 09:40 | RAD ---
CHEST 1 VIEW: HISTORY: Trauma. Fall. COMPARISON: Radiograph 05/17/17. FINDINGS: There is a basilar stent projecting over the left axilla. There is some scarring and nodularity over the right upper lobe. No pneumothorax. No effusion. Cardiac silhouette and mediastinal contours are similar. No displace d rib fracture. IMPRESSION: Nodular density projecting over the right upper lobe unchanged dating back to 2017, likely an area of scarring, although just above this is another irregularity density. Nonemergent followup CT of the chest is recommended. POS: [facility]
--- NOTE | 2017-07-26 09:41 | RAD ---
THORACIC SPINE 3 VIEWS: History Trauma. COMPARISON: None. FINDINGS: No acute fracture or malalignment of the thoracic spine. Moderate degenerative disease of the mid saurav mbar spine. Paraspinal soft tissues are unremarkable. IMPRESSION: No acute fracture of the thoracic spine. POS: [facility]
--- NOTE | 2017-07-26 09:47 | RAD ---
LEFT FEMUR 2 VIEWS: History Trauma. COMPARISON: None. FINDINGS: The femur itself is intact. There is degenerative remodeling of the medial and lateral femoral condy les. No acute displaced fracture. IMPRESSION: No fracture of the femur. POS: [facility]
--- NOTE | 2017-07-26 09:48 | RAD ---
LEFT KNEE 4 VIEWS: HISTORY: Trauma. COMPARISON: None. FINDINGS: Advanced degenerative disease of the medial and lateral compartments of the knee with osseous remodel ing and osteophyte formation. Mild osteopenia. No significant joint effusion. IMPRESSION: Degenerative changes. No acute fracture. POS: [facility]
== END 2017-07-26 10:18 | disposition home or self-care (01) ==
LOC: ERS 07:03
DX: M54.6 Pain in thoracic spine (principal); M25.562 Pain in left knee; M25.522 Pain in left elbow; I13.2 Hypertensive heart and chronic kidney disease with heart failure and with stage 5 chronic kidney disease, or end stage renal disease; I50.9 Heart failure, unspecified; F41.9 Anxiety disorder, unspecified; M10.9 Gout, unspecified; E78.5 Hyperlipidemia, unspecified; E11.22 Type 2 diabetes mellitus with diabetic chronic kidney disease; Z79.82 Long term (current) use of aspirin; Z79.899 Other long term (current) drug therapy
CPT/HCPCS: 70450; 71045; 72072; 72125